=== PATIENT | male | born 1980 | race Hispanic/Latino ===

== ENCOUNTER 2020-09-04 09:59 | Observation (INO) | payer OTHER ==
[2020-09-04 10:12] LABS: BASOPHILS % (AUTO) 0.6 % (0.0-5.0); EOSINOPHILS % (AUTO) 1.8 % (0.0-8.0); HEMATOCRIT 46.5 % (42-54); LYMPHOCYTES % (AUTO) 43.8 % (21.0-51.0); MEAN CORPUSCULAR HEMOGLOBIN 28.7 pg (27.0-33.0); MEAN CORPUSCULAR HGB CONC 33.5 g/dL (32.0-36.0); MEAN CORPUSCULAR VOLUME 85.6 fL (79-99); NEUTROPHILS % (AUTO) 45.3 % (40.0-77.0); PLATELET COUNT (AUTO) 201 K/uL (130-400); RED BLOOD CELL COUNT(AUTO) 5.43 MIL/uL (4.50-6.20); RED CELL DISTRIBUTION WIDTH 13.2 % (11.0-15.5); WHITE BLOOD COUNT (AUTO) 6.5 K/uL (4.8-10.8)
[2020-09-04 10:20] LABS: CREATININE 0.7 mg/dL (0.5-1.5)
[2020-09-04 10:30] LABS: ALBUMIN 4.7 g/dL (3.5-5.0); BILIRUBIN,TOTAL 0.4 mg/dL (0.2-1.0); TOTAL PROTEIN, SERUM 8.9 g/dL (6.0-8.3)
[2020-09-04] MEDS ORDERED: NITROGLYCERIN 0.4 MG SL TAB SL PRN (13:30)
[2020-09-04] MEDS ORDERED: MORPHINE 2 MG SYG IVP PRN (13:30)
[2020-09-04 13:44] LABS: HEMOGLOBIN A1C 6.5 % (4.0-6.0)
[2020-09-04 13:53] LABS: THYROID STIMULATING HORMONE 0.93 uIU/mL (0.36-3.74)
[2020-09-04] MEDS ORDERED: AMLODIPINE 5 MG TAB ONE (13:57)
[2020-09-04] MEDS ORDERED: AMLODIPINE 5 MG TAB PO SCH (14:30)
[2020-09-04 16:15] VITALS: BP 140/90
[2020-09-04] MEDS ORDERED: IBUP-14 PO (16:39)
[2020-09-04 20:00] VITALS: BP 139/80
[2020-09-04] MEDS ORDERED: ATORVASTATIN 20 MG TABLET PO SCH (21:00)
[2020-09-05 00:25] VITALS: BP 128/92
[2020-09-05 05:01] VITALS: BP 129/85
[2020-09-05 05:49] LABS: BASOPHILS % (AUTO) 0.5 % (0.0-5.0); EOSINOPHILS % (AUTO) 2.6 % (0.0-8.0); HEMATOCRIT 44.5 % (42-54); LYMPHOCYTES % (AUTO) 44.3 % (21.0-51.0); MEAN CORPUSCULAR HEMOGLOBIN 27.3 pg (27.0-33.0); MEAN CORPUSCULAR HGB CONC 31.9 g/dL (32.0-36.0); MEAN CORPUSCULAR VOLUME 85.6 fL (79-99); NEUTROPHILS % (AUTO) 44.3 % (40.0-77.0); PLATELET COUNT (AUTO) 207 K/uL (130-400); RED CELL DISTRIBUTION WIDTH 13.1 % (11.0-15.5); WHITE BLOOD COUNT (AUTO) 6.5 K/uL (4.8-10.8)
[2020-09-05 08:00] VITALS: BP 126/94
[2020-09-05] MEDS ORDERED: ASPIRIN 81MG CHEW TAB PO SCH (09:00)
[2020-09-05] MEDS ORDERED: ATOR20TA65 PO (10:46)
[2020-09-05] MEDS ORDERED: ASPI-1005 PO (10:46)
[2020-09-05 11:55] VITALS: BP 149/90
[2020-09-05] MEDS ORDERED: ENOXAPARIN SODIUM 40 MG/0.4 ML SYRINGE SQ SCH (21:00)
== END 2020-09-05 13:00 | disposition home or self-care (01) ==
LOC: EDH 09:59 → EDBD 09:59 → EDHIP 13:24 → 3BH 16:12
PROVIDERS: ADMIT Internal Medicine; ATTEND Internal Medicine
DX: R07.89 Other chest pain (principal); I10 Essential (primary) hypertension; E78.5 Hyperlipidemia, unspecified; E11.9 Type 2 diabetes mellitus without complications; E66.9 Obesity, unspecified
CPT/HCPCS: 36415 ×2; 71045; 80048; 80053; 80061; 83036; 84443; 84484 ×4; 85025 ×2; 93005; 93306; 93356; 99285; G0378 ×24